=== PATIENT | female | born 1970 | race African-American/Black ===

== ENCOUNTER 2023-04-26 08:30 | Inpatient (IN) | payer BC, OTHER ==
[~2023-04-26] VITALS: Ht 157.5 cm; Wt 151.6 kg
[2023-04-26] MEDS ORDERED: IPRATROPIUM BROMIDE (0.02%) 0.5MG/2.5ML NEB HHN STA (08:58)
[2023-04-26] MEDS ORDERED: METHYLPREDNISOLONE SOD SUCC 125MG/2ML (ACT-O-VIAL) IV STA (08:58)
[2023-04-26] MEDS ORDERED: FUROSEMIDE 40MG/4ML VIAL IV ONE (09:00)
[2023-04-26 09:26] LABS: BG CARBOXYHEMOGLOBIN 0.9 % (0.5-1.5); BG DEOXYHEMOGLOBIN 8.4 % (0.0-5.0); BG HCO3 ACT 42.6 mmol/L (22.0-26.0); BG METHEMOGLOBIN 0.3 % (0.0-1.5); BG OXYGEN SATURATION 91.5 % (92.0-98.5); BG OXYHEMOGLOBIN 90.4 % (94.0-97.0); BG PCO2 77.4 mmHg (35.0-45.0); BG PH 7.359 (7.350-7.450); BG PO2 62.8 mmHg (75.0-100.0); BG SAMPLE SITE RIGHT BRACHIAL; BG TOTAL HEMOGLOBIN 12.1 g/dL (12.0-18.0); BG VENT MODE NASAL CANNULA
[2023-04-26 09:28] VITALS: PULSE 78; RESP 20; O2SAT 100
[2023-04-26] MEDS: ALBUTEROL (0.083%) 2.5MG/3ML NEB HHN SCH ×3 (09:28→10:30)
[2023-04-26 09:36] LABS: BASOPHILS % 1.3 % (0.0-2.0); DIFFERENTIAL COMMENT 0; HEMATOCRIT. 36.2 % (36.0-48.0); HEMOGLOBIN. 10.8 g/dL (12.0-16.0); LYMPHOCYTES % 29.7 % (20.0-50.0); MEAN CORPUSCULAR HEMOGLOBIN 23.4 pg (28.0-32.0); MEAN CORPUSCULAR VOLUME 78.1 fL (81.0-99.0); MEAN PLATELET VOLUME 8.9 fl (7.4-10.4); MONOCYTES % 4.1 % (2.0-8.0); NEUTROPHILS % 63.9 % (40.0-76.0); PLATELET 189 x1000/uL (130-400); RED BLOOD CELL COUNT 4.63 mill/uL (4.2-5.4); RED CELL DISTRIBUTION WIDTH 16.4 % (11.6-14.6); WHITE BLOOD COUNT 9.2 x1000/uL (4.5-11.0)
[2023-04-26 09:54] LABS: ALANINE AMINOTRANSFERASE 8 IU/L (10-49); ALBUMIN 3.9 g/dL (3.2-4.8); ASPARTATE AMINOTRANSFERASE 14 IU/L (<34); BILIRUBIN TOTAL 0.4 mg/dL (0.1-1.0); CALCIUM 9.1 mg/dL (8.7-10.4); CHLORIDE 98 mEq/L (98-107); CREATININE 0.7 mg/dL (0.6-1.0); GLUCOSE 119 mg/dL (70-105); POTASSIUM 3.5 mEq/L (3.5-5.1); PROTEIN TOTAL 7.6 g/dL (6.0-8.3); SODIUM 139 mEq/L (136-145); UREA NITROGEN BLOOD 9 mg/dL (9-23)
[2023-04-26 10:09] VITALS: PULSE 88; RESP 20; O2SAT 100
[2023-04-26 10:30] VITALS: PULSE 72; RESP 18; O2SAT 98
[2023-04-26 11:09] LABS: CARBON DIOXIDE > 40 mEq/L (21-32); TROPONIN I HIGH SENSITIVITY 63 ng/L (3.0-34)
[2023-04-26 11:32] VITALS: RESP 25
[2023-04-26 11:58] LABS: TROPONIN I HIGH SENSITIVITY 68 ng/L (3.0-34)
[2023-04-26] MEDS ORDERED: CLONIDINE 0.1MG TABLET PO PRN (16:15)
[2023-04-26] MEDS ORDERED: LEVOFLOXACIN 500MG PREMIX 100 ML IV SCH (16:15)
[2023-04-26] MEDS: FUROSEMIDE 40MG/4ML VIAL IVP SCH (16:53)
[2023-04-26] MEDS: ENOXAPARIN 40MG/0.4ML SYR SUBCUT SCH (21:18)
[2023-04-27] VITALS (13 sets, daily range): BP systolic 107–144; BP diastolic 58–103; PULSE 69–96; RESP 15–28; TEMP 97.5–98.5; O2SAT 96
[2023-04-27 05:13] LABS: CREATINE KINASE MB FRACTION 1.2 ng/mL (0.5-3.6)
[2023-04-27] MEDS: FUROSEMIDE 40MG/4ML VIAL IVP SCH (09:47)
[2023-04-27] MEDS: ENOXAPARIN 40MG/0.4ML SYR SUBCUT SCH ×2 (09:48→20:06)
[2023-04-27] MEDS: ACETAMINOPHEN 325MG TABLET PO PRN ×2 (09:50→19:39)
[2023-04-27] MEDS ORDERED: IPRATROPIUM BROMIDE (0.02%) 0.5MG/2.5ML NEB HHN SCH (14:45)
[2023-04-27] MEDS: PANTOPRAZOLE 40MG DR TABLET PO SCH (16:46)
[2023-04-27] MEDS: METHYLPREDNISOLONE SOD SUCC 40MG/ML (ACT-O-VIAL) IV SCH ×2 (16:46→22:26)
[2023-04-27] MEDS: LEVOFLOXACIN 500MG PREMIX 100 ML IV SCH (16:47)
[2023-04-27 20:15] LABS: *AMPHETAMINES SCREEN URINE NEGATIVE (NEGATIVE); *BARBITURATES SCREEN URINE NEGATIVE (NEGATIVE); *BENZODIAZEPINES SCREEN URINE NEGATIVE (NEGATIVE); *COCAINE SCREEN URINE NEGATIVE (NEGATIVE); CANNABINOID URINE SCREEN PRESUMPTIVE POSITIVE (NEGATIVE); ECSTASY MDMA SCREEN URINE NEGATIVE (NEGATIVE); METHADONE URINE SCREEN Neg (NEGATIVE); OPIATES URINE SCREEN NEGATIVE (NEGATIVE); PHENCYCLIDINE URINE SCREEN NEGATIVE (NEGATIVE)
[2023-04-27] MEDS: IPRATROPIUM/ALBUTEROL 0.5-3(2.5)MG/3ML NEB HHN SCH (20:21)
[2023-04-28] VITALS (16 sets, daily range): BP systolic 111–143; BP diastolic 59–93; PULSE 65–98; RESP 16–25; TEMP 97–97.7; O2SAT 95–99
[2023-04-28] MEDS: IPRATROPIUM/ALBUTEROL 0.5-3(2.5)MG/3ML NEB HHN SCH ×4 (01:47→20:26)
[2023-04-28] MEDS: METHYLPREDNISOLONE SOD SUCC 40MG/ML (ACT-O-VIAL) IV SCH ×3 (06:45→22:14)
[2023-04-28] MEDS: FUROSEMIDE 40MG/4ML VIAL IVP SCH (08:11)
[2023-04-28] MEDS: ENOXAPARIN 40MG/0.4ML SYR SUBCUT SCH ×2 (08:11→21:18)
[2023-04-28] MEDS: PANTOPRAZOLE 40MG DR TABLET PO SCH (08:11)
[2023-04-28 08:27] LABS: HEMATOCRIT. 37.4 % (36.0-48.0); HEMOGLOBIN. 11.6 g/dL (12.0-16.0); MEAN CORPUSCULAR HEMOGLOBIN 23.7 pg (28.0-32.0); MEAN CORPUSCULAR HGB CONC 30.9 g/dL (31.0-37.0); MEAN CORPUSCULAR VOLUME 76.7 fL (81.0-99.0); MEAN PLATELET VOLUME 9.2 fl (7.4-10.4); PLATELET 271 x1000/uL (130-400); RED BLOOD CELL COUNT 4.88 mill/uL (4.2-5.4); RED CELL DISTRIBUTION WIDTH 16.6 % (11.6-14.6); WHITE BLOOD COUNT 15.9 x1000/uL (4.5-11.0)
[2023-04-28 08:33] LABS: DIFFERENTIAL COMMENT 1
[2023-04-28 09:00] LABS: CALCIUM 9.9 mg/dL (8.7-10.4); CHLORIDE 93 mEq/L (98-107); CREATININE 0.7 mg/dL (0.6-1.0); GLUCOSE 129 mg/dL (70-105); POTASSIUM 4.8 mEq/L (3.5-5.1); SODIUM 137 mEq/L (136-145); UREA NITROGEN BLOOD 11 mg/dL (9-23)
[2023-04-28 11:13] LABS: HEPATITIS B SURFACE ANTIGEN REACTIVE PEND CONFIR (Negative); HEPATITIS C AB NON REACTIVE (Neg) (Negative)
[2023-04-28] MEDS: ACETAMINOPHEN 325MG TABLET PO PRN (13:02)
[2023-04-28 13:32] LABS: CARBON DIOXIDE > 40 mEq/L (21-32)
[2023-04-28] MEDS ORDERED: DEXTROSE 50% WATER 50ML SYRINGE IV PRN (14:45)
[2023-04-28 15:41] LABS: ANISOCYTOSIS 1+; HYPOCHROMASIA 1+; MICROCYTOSIS 1+; PLATELET ESTIMATE NORMAL
[2023-04-28] MEDS: LEVETIRACETAM 500MG PREMIX 100 ML IV SCH ×2 (15:54→23:13)
[2023-04-28 15:57] LABS: CREATINE KINASE MB FRACTION 2.1 ng/mL (0.5-3.6)
[2023-04-28] MEDS: LEVOFLOXACIN 500MG PREMIX 100 ML IV SCH (16:00)
[2023-04-28 16:07] LABS: BG BASE EXCESS 12.4 mmol/L (-2.0-2.0); BG CARBOXYHEMOGLOBIN 0.2 % (0.5-1.5); BG DEOXYHEMOGLOBIN 8.9 % (0.0-5.0); BG FRACTION INSPIRED OXYGEN 32; BG HCO3 ACT 40.4 mmol/L (22.0-26.0); BG METHEMOGLOBIN 0.3 % (0.0-1.5); BG OXYGEN SATURATION 91.1 % (92.0-98.5); BG OXYHEMOGLOBIN 90.6 % (94.0-97.0); BG PCO2 69.5 mmHg (35.0-45.0); BG PH 7.382 (7.350-7.450); BG SAMPLE SITE RIGHT RADIAL; BG TOTAL HEMOGLOBIN 12.7 g/dL (12.0-18.0); BG VENT MODE NASAL CANNULA
[2023-04-28] MEDS: BLOOD SUGAR DIAGNOSTIC STRIP TEST SCH ×2 (17:30→21:17)
[2023-04-28] MEDS: INSULIN LISPRO 100 UNITS/ML SUBCUT SCH ×2 (18:00→21:18)
[2023-04-28] MEDS ORDERED: CARV12.545 PO (19:34)
[2023-04-28] MEDS ORDERED: LOSA25TA26 PO (19:34)
[2023-04-28] MEDS ORDERED: TIOT4MIS5 IH (19:43)
[2023-04-28] MEDS ORDERED: ASPI-1497 PO (19:43)
[2023-04-28] MEDS ORDERED: BUME2TAB7 MT (19:43)
[2023-04-28] MEDS ORDERED: TOPUD PO (19:43)
[2023-04-28] MEDS ORDERED: ATOR-2 PO (19:43)
[2023-04-28] MEDS ORDERED: ISOS30TA12 PO (19:43)
[2023-04-28] MEDS ORDERED: PANT40TA51 PO (19:43)
[2023-04-29] VITALS (16 sets, daily range): BP systolic 124–139; BP diastolic 55–85; PULSE 65–108; RESP 16–25; TEMP 97.7–98.4; O2SAT 94–96
[2023-04-29] MEDS: IPRATROPIUM/ALBUTEROL 0.5-3(2.5)MG/3ML NEB HHN SCH ×4 (01:09→21:03)
[2023-04-29 05:18] LABS: HEMATOCRIT. 37.5 % (36.0-48.0); HEMOGLOBIN. 11.5 g/dL (12.0-16.0); MEAN CORPUSCULAR HEMOGLOBIN 23.6 pg (28.0-32.0); MEAN CORPUSCULAR HGB CONC 30.8 g/dL (31.0-37.0); MEAN CORPUSCULAR VOLUME 76.7 fL (81.0-99.0); MEAN PLATELET VOLUME 8.8 fl (7.4-10.4); PLATELET 283 x1000/uL (130-400); RED BLOOD CELL COUNT 4.89 mill/uL (4.2-5.4); RED CELL DISTRIBUTION WIDTH 16.6 % (11.6-14.6); WHITE BLOOD COUNT 18.3 x1000/uL (4.5-11.0)
[2023-04-29 05:32] LABS: CALCIUM 9.9 mg/dL (8.7-10.4); CHLORIDE 92 mEq/L (98-107); CREATININE 0.7 mg/dL (0.6-1.0); GLUCOSE 143 mg/dL (70-105); POTASSIUM 4.8 mEq/L (3.5-5.1); SODIUM 137 mEq/L (136-145); UREA NITROGEN BLOOD 16 mg/dL (9-23)
[2023-04-29 05:59] LABS: CARBON DIOXIDE > 40 mEq/L (21-32)
[2023-04-29] MEDS: METHYLPREDNISOLONE SOD SUCC 40MG/ML (ACT-O-VIAL) IV SCH ×3 (06:21→22:00)
[2023-04-29 06:49] LABS: DIFFERENTIAL COMMENT 1
[2023-04-29] MEDS: BLOOD SUGAR DIAGNOSTIC STRIP TEST SCH ×4 (07:30→21:20)
[2023-04-29] MEDS: INSULIN LISPRO 100 UNITS/ML SUBCUT SCH ×4 (08:00→21:20)
[2023-04-29] MEDS: ENOXAPARIN 40MG/0.4ML SYR SUBCUT SCH ×2 (08:47→21:19)
[2023-04-29] MEDS: PANTOPRAZOLE 40MG DR TABLET PO SCH (08:47)
[2023-04-29] MEDS: FUROSEMIDE 40MG/4ML VIAL IVP SCH (08:47)
[2023-04-29] MEDS: LEVETIRACETAM 500MG PREMIX 100 ML IV SCH (08:48)
[2023-04-29] MEDS ORDERED: LACTULOSE 20G/30ML UDC PO NR (11:09)
[2023-04-29] MEDS: ACETAMINOPHEN 325MG TABLET PO PRN ×2 (12:44→22:14)
[2023-04-29] MEDS: LEVOFLOXACIN 500MG PREMIX 100 ML IV SCH (15:52)
[2023-04-29 18:10] LABS: ANISOCYTOSIS 1+; PLATELET ESTIMATE NORMAL
[2023-04-29 18:11] LABS: HYPOCHROMASIA 1+; MICROCYTOSIS 1+
[2023-04-29] MEDS ORDERED: NA PHOS,M-B/NA PHOS,DI-BA ENEMA 118ML PR PRN (19:15)
[2023-04-29] MEDS ORDERED: BISACODYL 5MG TABLET PO PRN (19:15)
[2023-04-29] MEDS: LEVETIRACETAM 500MG TABLET PO SCH (21:19)
[2023-04-30] VITALS (17 sets, daily range): BP systolic 101–146; BP diastolic 54–93; PULSE 66–132; RESP 15–30; TEMP 97.4–98.4; O2SAT 96–99
[2023-04-30] MEDS: IPRATROPIUM/ALBUTEROL 0.5-3(2.5)MG/3ML NEB HHN SCH ×4 (02:45→20:29)
[2023-04-30] MEDS: METHYLPREDNISOLONE SOD SUCC 40MG/ML (ACT-O-VIAL) IV SCH ×3 (05:58→16:39)
[2023-04-30] MEDS: INSULIN LISPRO 100 UNITS/ML SUBCUT SCH ×4 (08:00→21:33)
[2023-04-30 08:08] LABS: HBSAG SCREEN Negative (Negative)
[2023-04-30] MEDS: FAMOTIDINE 20MG TABLET PO SCH ×2 (08:16→21:29)
[2023-04-30] MEDS: FUROSEMIDE 40MG/4ML VIAL IVP SCH (08:16)
[2023-04-30] MEDS: ENOXAPARIN 40MG/0.4ML SYR SUBCUT SCH ×2 (08:16→21:29)
[2023-04-30] MEDS: ACETAMINOPHEN 325MG TABLET PO PRN (08:16)
[2023-04-30] MEDS: LEVETIRACETAM 500MG TABLET PO SCH ×2 (08:16→21:30)
[2023-04-30] MEDS: BLOOD SUGAR DIAGNOSTIC STRIP TEST SCH ×4 (08:17→21:00)
[2023-04-30 11:57] LABS: HEMATOCRIT. 40.2 % (36.0-48.0); MEAN CORPUSCULAR HGB CONC 29.8 g/dL (31.0-37.0); MEAN CORPUSCULAR VOLUME 77.1 fL (81.0-99.0); MEAN PLATELET VOLUME 9.1 fl (7.4-10.4); PLATELET 308 x1000/uL (130-400); RED BLOOD CELL COUNT 5.21 mill/uL (4.2-5.4); RED CELL DISTRIBUTION WIDTH 16.4 % (11.6-14.6); WHITE BLOOD COUNT 16.5 x1000/uL (4.5-11.0)
[2023-04-30] MEDS: LACTULOSE 20G/30ML UDC PO PRN (11:58)
[2023-04-30 12:13] LABS: DIFFERENTIAL COMMENT 1
[2023-04-30 12:14] LABS: ALANINE AMINOTRANSFERASE 8 IU/L (10-49); ALBUMIN 4.2 g/dL (3.2-4.8); ASPARTATE AMINOTRANSFERASE 10 IU/L (<34); BILIRUBIN TOTAL 0.3 mg/dL (0.1-1.0); CALCIUM 9.5 mg/dL (8.7-10.4); CHLORIDE 91 mEq/L (98-107); CREATININE 0.8 mg/dL (0.6-1.0); GLUCOSE 216 mg/dL (70-105); POTASSIUM 4.3 mEq/L (3.5-5.1); SODIUM 136 mEq/L (136-145); UREA NITROGEN BLOOD 18 mg/dL (9-23)
[2023-04-30 12:43] LABS: CARBON DIOXIDE > 40 mEq/L (21-32)
[2023-04-30] MEDS: LORAZEPAM 4MG/ML VIAL IV PRN ×2 (13:34→22:10)
[2023-04-30] MEDS: LEVOFLOXACIN 500MG PREMIX 100 ML IV SCH (16:42)
[2023-04-30 18:35] LABS: HYPOCHROMASIA 1+; MICROCYTOSIS 1+; PLATELET ESTIMATE NORMAL
[2023-04-30 18:52] LABS: *AMPHETAMINES SCREEN URINE NEGATIVE (NEGATIVE); *BARBITURATES SCREEN URINE NEGATIVE (NEGATIVE); *BENZODIAZEPINES SCREEN URINE NEGATIVE (NEGATIVE); *COCAINE SCREEN URINE NEGATIVE (NEGATIVE); CANNABINOID URINE SCREEN PRESUMPTIVE POSITIVE (NEGATIVE); ECSTASY MDMA SCREEN URINE NEGATIVE (NEGATIVE); METHADONE URINE SCREEN Neg (NEGATIVE); OPIATES URINE SCREEN NEGATIVE (NEGATIVE); PHENCYCLIDINE URINE SCREEN NEGATIVE (NEGATIVE)
[2023-05-01] VITALS (65 sets, daily range): BP systolic 91–157; BP diastolic 54–122; PULSE 66–151; RESP 13–25; TEMP 96–100.5; O2SAT 97
[2023-05-01] MEDS: LORAZEPAM 4MG/ML VIAL IV PRN (04:22)
[2023-05-01] MEDS: ONDANSETRON HCL 4MG/2ML INJ IV PRN (04:22)
[2023-05-01] MEDS: BLOOD SUGAR DIAGNOSTIC STRIP TEST SCH ×4 (07:30→21:59)
[2023-05-01] MEDS: INSULIN LISPRO 100 UNITS/ML SUBCUT SCH ×4 (08:00→21:00)
[2023-05-01 08:04] LABS: BG BASE EXCESS 17.1 mmol/L (-2.0-2.0); BG CARBOXYHEMOGLOBIN 0.5 % (0.5-1.5); BG DEOXYHEMOGLOBIN 1.1 % (0.0-5.0); BG FRACTION INSPIRED OXYGEN 100; BG HCO3 ACT 46.9 mmol/L (22.0-26.0); BG METHEMOGLOBIN 0.4 % (0.0-1.5); BG OXYGEN SATURATION 98.9 % (92.0-98.5); BG PCO2 87.8 mmHg (35.0-45.0); BG PH 7.346 (7.350-7.450); BG PO2 140.1 mmHg (75.0-100.0); BG SAMPLE SITE RIGHT RADIAL; BG TOTAL HEMOGLOBIN 12.7 g/dL (12.0-18.0); BG VENT MODE VENT - AC
[2023-05-01] MEDS: METHYLPREDNISOLONE SOD SUCC 40MG/ML (ACT-O-VIAL) IV SCH ×2 (08:22→18:45)
[2023-05-01] MEDS: FUROSEMIDE 40MG/4ML VIAL IVP SCH (08:22)
[2023-05-01] MEDS: FAMOTIDINE 20MG TABLET PO SCH ×2 (08:22→21:09)
[2023-05-01] MEDS: ENOXAPARIN 40MG/0.4ML SYR SUBCUT SCH ×2 (08:22→21:09)
[2023-05-01] MEDS: PROPOFOL 10MG/ML 100ML 100 ML IV PRN ×6 (08:23→22:35)
[2023-05-01] MEDS: LEVETIRACETAM 500MG TABLET PO SCH ×2 (08:23→21:10)
[2023-05-01] MEDS: IPRATROPIUM/ALBUTEROL 0.5-3(2.5)MG/3ML NEB HHN SCH ×3 (08:55→20:44)
[2023-05-01] MEDS ORDERED: LIDOCAINE HCL 1% 10 MG/ML 10ML VIAL ONE (10:33)
[2023-05-01 11:03] LABS: BG BASE EXCESS 16.7 mmol/L (-2.0-2.0); BG CARBOXYHEMOGLOBIN 0.4 % (0.5-1.5); BG DEOXYHEMOGLOBIN 9.7 % (0.0-5.0); BG FRACTION INSPIRED OXYGEN 100; BG HCO3 ACT 44.9 mmol/L (22.0-26.0); BG METHEMOGLOBIN 0.5 % (0.0-1.5); BG OXYGEN SATURATION 90.2 % (92.0-98.5); BG OXYHEMOGLOBIN 89.4 % (94.0-97.0); BG PCO2 71.1 mmHg (35.0-45.0); BG PH 7.418 (7.350-7.450); BG PO2 56.1 mmHg (75.0-100.0); BG SAMPLE SITE RIGHT RADIAL; BG TOTAL HEMOGLOBIN 13.3 g/dL (12.0-18.0); BG VENT MODE VENT - AC
[2023-05-01] MEDS: LEVOFLOXACIN 750MG PREMIX 150 ML IV SCH (11:13)
[2023-05-01] MEDS: ACETYLCYSTEINE 200MG/ML 20% VIAL 4ML INH SCH (15:00)
[2023-05-01 17:49] LABS: BG BASE EXCESS 19.6 mmol/L (-2.0-2.0); BG CARBOXYHEMOGLOBIN 0.1 % (0.5-1.5); BG DEOXYHEMOGLOBIN 1.8 % (0.0-5.0); BG FRACTION INSPIRED OXYGEN 100; BG HCO3 ACT 45.6 mmol/L (22.0-26.0); BG METHEMOGLOBIN 0.3 % (0.0-1.5); BG OXYGEN SATURATION 98.2 % (92.0-98.5); BG OXYHEMOGLOBIN 97.8 % (94.0-97.0); BG PCO2 57.4 mmHg (35.0-45.0); BG PH 7.518 (7.350-7.450); BG PO2 108.8 mmHg (75.0-100.0); BG SAMPLE SITE LEFT RADIAL; BG TOTAL HEMOGLOBIN 12.8 g/dL (12.0-18.0); BG VENT MODE VENT - AC
[2023-05-02] VITALS (104 sets, daily range): BP systolic 94–139; BP diastolic 57–87; PULSE 58–104; RESP 15–22; TEMP 98–100.5
[2023-05-02] MEDS: ACETYLCYSTEINE 200MG/ML 20% VIAL 4ML INH SCH ×4 (00:32→14:08)
[2023-05-02] MEDS: IPRATROPIUM/ALBUTEROL 0.5-3(2.5)MG/3ML NEB HHN SCH ×3 (00:32→14:08)
[2023-05-02] MEDS: PROPOFOL 10MG/ML 100ML 100 ML IV PRN ×4 (01:16→08:50)
[2023-05-02] MEDS: BLOOD SUGAR DIAGNOSTIC STRIP TEST SCH ×4 (05:30→21:00)
[2023-05-02 05:38] LABS: BASOPHILS % 0.1 % (0.0-2.0); DIFFERENTIAL COMMENT 0; HEMOGLOBIN. 11.5 g/dL (12.0-16.0); LYMPHOCYTES % 8.9 % (20.0-50.0); MEAN CORPUSCULAR HEMOGLOBIN 22.9 pg (28.0-32.0); MEAN CORPUSCULAR HGB CONC 30.1 g/dL (31.0-37.0); MEAN CORPUSCULAR VOLUME 76.1 fL (81.0-99.0); MEAN PLATELET VOLUME 9.1 fl (7.4-10.4); MONOCYTES % 6.6 % (2.0-8.0); NEUTROPHILS % 84.4 % (40.0-76.0); PLATELET 278 x1000/uL (130-400); RED CELL DISTRIBUTION WIDTH 15.8 % (11.6-14.6); WHITE BLOOD COUNT 16.2 x1000/uL (4.5-11.0)
[2023-05-02 05:56] LABS: CALCIUM 9.2 mg/dL (8.7-10.4); CHLORIDE 88 mEq/L (98-107); CREATININE 0.9 mg/dL (0.6-1.0); GLUCOSE 116 mg/dL (70-105); POTASSIUM 3.8 mEq/L (3.5-5.1); SODIUM 134 mEq/L (136-145); TRIGLYCERIDE 243 mg/dL (0-150); UREA NITROGEN BLOOD 20 mg/dL (9-23)
[2023-05-02 06:14] LABS: CARBON DIOXIDE > 40 mEq/L (21-32)
[2023-05-02] MEDS: INSULIN LISPRO 100 UNITS/ML SUBCUT SCH ×4 (07:00→21:00)
[2023-05-02 08:22] LABS: BG PCO2 54.9 mmHg (35.0-45.0); BG PH 7.546 (7.350-7.450); BG SAMPLE SITE RIGHT RADIAL; BG VENT MODE VENT - AC
[2023-05-02 08:23] LABS: BG CARBOXYHEMOGLOBIN 0.4 % (0.5-1.5); BG HCO3 ACT 46.5 mmol/L (22.0-26.0); BG METHEMOGLOBIN 0.3 % (0.0-1.5); BG OXYHEMOGLOBIN 96.3 % (94.0-97.0); BG PO2 89.5 mmHg (75.0-100.0); BG TOTAL HEMOGLOBIN 12.6 g/dL (12.0-18.0)
[2023-05-02] MEDS ORDERED: PROPOFOL 10MG/ML 100ML 100 ML IV PRN (08:45)
[2023-05-02] MEDS: LEVETIRACETAM 500MG TABLET PO SCH ×2 (08:50→22:11)
[2023-05-02] MEDS: FAMOTIDINE 20MG TABLET PO SCH ×2 (08:50→22:11)
[2023-05-02] MEDS: ENOXAPARIN 40MG/0.4ML SYR SUBCUT SCH ×2 (08:50→22:10)
[2023-05-02] MEDS: METHYLPREDNISOLONE SOD SUCC 40MG/ML (ACT-O-VIAL) IV SCH ×2 (08:50→16:36)
[2023-05-02] MEDS: FUROSEMIDE 40MG/4ML VIAL IVP SCH (08:50)
[2023-05-02] MEDS ORDERED: PANTOPRAZOLE SODIUM 40 MG/VIAL IV SCH (09:00)
[2023-05-02] MEDS: LEVOFLOXACIN 750MG PREMIX 150 ML IV SCH (10:16)
[2023-05-02] MEDS ORDERED: MIDAZOLAM 100MG/100ML PMX 100 ML IV PRN (12:00)
[2023-05-02] MEDS ORDERED: FENTANYL 2500MCG/250ML PMX 250 ML IV ONE (12:00)
[2023-05-02] MEDS: MIDAZOLAM HCL 100 MG in SODIUM CHLORIDE 0.9% 100 ML IV PRN (12:49)
[2023-05-02] MEDS: FENTANYL CITRATE 2,500 MCG in SODIUM CHLORIDE 0.9% 200 ML IV PRN (12:49)
[2023-05-03] VITALS (104 sets, daily range): BP systolic 102–125; BP diastolic 60–86; PULSE 54–125; RESP 13–25; TEMP 97.8–99
[2023-05-03] MEDS: MIDAZOLAM HCL 100 MG in SODIUM CHLORIDE 0.9% 100 ML IV PRN ×2 (00:56→16:19)
[2023-05-03] MEDS: BLOOD SUGAR DIAGNOSTIC STRIP TEST SCH ×4 (06:30→21:42)
[2023-05-03] MEDS: FUROSEMIDE 40MG/4ML VIAL IVP SCH (09:00)
[2023-05-03] MEDS: ENOXAPARIN 40MG/0.4ML SYR SUBCUT SCH ×2 (09:01→21:50)
[2023-05-03] MEDS: FAMOTIDINE 20MG TABLET PO SCH ×2 (09:01→21:49)
[2023-05-03] MEDS: METHYLPREDNISOLONE SOD SUCC 40MG/ML (ACT-O-VIAL) IV SCH ×2 (09:01→16:18)
[2023-05-03] MEDS: LEVOFLOXACIN 750MG PREMIX 150 ML IV SCH (09:02)
[2023-05-03] MEDS: LEVETIRACETAM 500MG TABLET PO SCH ×2 (09:02→21:49)
[2023-05-03 09:25] LABS: BASOPHILS % 0.2 % (0.0-2.0); DIFFERENTIAL COMMENT 0; HEMATOCRIT. 38.4 % (36.0-48.0); HEMOGLOBIN. 11.8 g/dL (12.0-16.0); LYMPHOCYTES % 9.3 % (20.0-50.0); MEAN CORPUSCULAR HEMOGLOBIN 22.9 pg (28.0-32.0); MEAN CORPUSCULAR HGB CONC 30.8 g/dL (31.0-37.0); MEAN CORPUSCULAR VOLUME 74.2 fL (81.0-99.0); MEAN PLATELET VOLUME 8.6 fl (7.4-10.4); MONOCYTES % 7.4 % (2.0-8.0); NEUTROPHILS % 83.1 % (40.0-76.0); PLATELET 252 x1000/uL (130-400); RED BLOOD CELL COUNT 5.18 mill/uL (4.2-5.4); RED CELL DISTRIBUTION WIDTH 16.3 % (11.6-14.6); WHITE BLOOD COUNT 21.8 x1000/uL (4.5-11.0)
[2023-05-03 09:40] LABS: CALCIUM 9.2 mg/dL (8.7-10.4); CARBON DIOXIDE 40 mEq/L (21-32); CHLORIDE 90 mEq/L (98-107); CREATININE 0.8 mg/dL (0.6-1.0); GLUCOSE 107 mg/dL (70-105); POTASSIUM 3.7 mEq/L (3.5-5.1); SODIUM 135 mEq/L (136-145); UREA NITROGEN BLOOD 29 mg/dL (9-23)
[2023-05-03] MEDS: INSULIN LISPRO 100 UNITS/ML SUBCUT SCH ×3 (12:00→21:50)
[2023-05-03 12:18] LABS: BG BASE EXCESS 16.4 mmol/L (-2.0-2.0); BG CARBOXYHEMOGLOBIN 0.5 % (0.5-1.5); BG DEOXYHEMOGLOBIN 5.8 % (0.0-5.0); BG FRACTION INSPIRED OXYGEN 40; BG HCO3 ACT 41.2 mmol/L (22.0-26.0); BG METHEMOGLOBIN 0.2 % (0.0-1.5); BG OXYGEN SATURATION 94.2 % (92.0-98.5); BG OXYHEMOGLOBIN 93.5 % (94.0-97.0); BG PCO2 49.2 mmHg (35.0-45.0); BG PH 7.541 (7.350-7.450); BG PO2 69.9 mmHg (75.0-100.0); BG SAMPLE SITE RIGHT RADIAL; BG TOTAL HEMOGLOBIN 13.5 g/dL (12.0-18.0); BG VENT MODE VENT - AC/VC
[2023-05-03] MEDS: ACETYLCYSTEINE 200MG/ML 20% VIAL 4ML INH SCH (14:22)
[2023-05-03] MEDS: LACTULOSE 20G/30ML UDC PO PRN (23:27)
[2023-05-04] VITALS (77 sets, daily range): BP systolic 93–142; BP diastolic 59–107; PULSE 61–115; RESP 12–30; TEMP 98–99.2
[2023-05-04] MEDS: FENTANYL CITRATE 2,500 MCG in SODIUM CHLORIDE 0.9% 200 ML IV PRN (01:04)
[2023-05-04] MEDS: BLOOD SUGAR DIAGNOSTIC STRIP TEST SCH ×4 (05:39→21:56)
[2023-05-04] MEDS: INSULIN LISPRO 100 UNITS/ML SUBCUT SCH ×4 (06:01→21:00)
[2023-05-04 08:30] LABS: BG BASE EXCESS 16.2 mmol/L (-2.0-2.0); BG DEOXYHEMOGLOBIN 6.2 % (0.0-5.0); BG HCO3 ACT 44.3 mmol/L (22.0-26.0); BG METHEMOGLOBIN 0.3 % (0.0-1.5); BG OXYGEN SATURATION 93.7 % (92.0-98.5); BG OXYHEMOGLOBIN 92.5 % (94.0-97.0); BG PCO2 69.8 mmHg (35.0-45.0); BG SAMPLE SITE RIGHT RADIAL; BG TOTAL HEMOGLOBIN 13.6 g/dL (12.0-18.0); BG VENT MODE VENT - CPAP
[2023-05-04] MEDS: FUROSEMIDE 40MG/4ML VIAL IVP SCH (09:00)
[2023-05-04] MEDS: IPRATROPIUM/ALBUTEROL 0.5-3(2.5)MG/3ML NEB HHN SCH (09:01)
[2023-05-04] MEDS: ACETYLCYSTEINE 200MG/ML 20% VIAL 4ML INH SCH (09:01)
[2023-05-04] MEDS: ENOXAPARIN 40MG/0.4ML SYR SUBCUT SCH ×2 (09:51→21:56)
[2023-05-04] MEDS: FAMOTIDINE 20MG TABLET PO SCH ×2 (09:51→21:56)
[2023-05-04] MEDS: LEVOFLOXACIN 750MG PREMIX 150 ML IV SCH (09:51)
[2023-05-04] MEDS: METHYLPREDNISOLONE SOD SUCC 40MG/ML (ACT-O-VIAL) IV SCH ×2 (09:51→17:16)
[2023-05-04] MEDS: LEVETIRACETAM 500MG TABLET PO SCH ×2 (09:52→21:56)
[2023-05-04] MEDS ORDERED: PROPOFOL 10MG/ML 100ML 100 ML IV PRN (12:45)
[2023-05-04] MEDS ORDERED: VANCOMYCIN 2,000 MG in DEXT 5% WATER 500 ML IV NR (16:00)
[2023-05-04] MEDS: ONDANSETRON HCL 4MG/2ML INJ IV PRN (20:01)
[2023-05-04] MEDS: ACETAMINOPHEN 325MG TABLET PO PRN (23:13)
[2023-05-05] VITALS (12 sets, daily range): BP systolic 117–139; BP diastolic 65–102; PULSE 61–81; RESP 13–23; TEMP 96.9–98.2; O2SAT 98
[2023-05-05] MEDS: BLOOD SUGAR DIAGNOSTIC STRIP TEST SCH ×4 (06:41→21:00)
[2023-05-05] MEDS: INSULIN LISPRO 100 UNITS/ML SUBCUT SCH ×4 (06:42→21:25)
[2023-05-05] MEDS: VANCOMYCIN 1G PREMIX 200 ML IV SCH ×2 (06:43→18:18)
[2023-05-05] MEDS: METHYLPREDNISOLONE SOD SUCC 40MG/ML (ACT-O-VIAL) IV SCH ×2 (11:11→18:18)
[2023-05-05] MEDS: FUROSEMIDE 40MG/4ML VIAL IVP SCH (11:11)
[2023-05-05] MEDS: LEVETIRACETAM 500MG TABLET PO SCH ×2 (11:12→21:24)
[2023-05-05] MEDS: FAMOTIDINE 20MG TABLET PO SCH ×2 (11:12→21:24)
[2023-05-05] MEDS: ENOXAPARIN 40MG/0.4ML SYR SUBCUT SCH ×2 (11:14→21:24)
[2023-05-05] MEDS: LEVOFLOXACIN 750MG PREMIX 150 ML IV SCH (11:14)
[2023-05-05] MEDS: IPRATROPIUM/ALBUTEROL 0.5-3(2.5)MG/3ML NEB HHN SCH (21:29)
[2023-05-06] VITALS (10 sets, daily range): BP systolic 117–132; BP diastolic 71–81; PULSE 64–75; RESP 16–24; TEMP 97.8–99; O2SAT 94–98
[2023-05-06] MEDS: IPRATROPIUM/ALBUTEROL 0.5-3(2.5)MG/3ML NEB HHN SCH ×3 (00:50→14:17)
[2023-05-06] MEDS: ACETYLCYSTEINE 200MG/ML 20% VIAL 4ML INH SCH ×2 (00:50→08:41)
[2023-05-06] MEDS: BLOOD SUGAR DIAGNOSTIC STRIP TEST SCH ×4 (06:50→20:44)
[2023-05-06 07:03] LABS: BASOPHILS % 0.2 % (0.0-2.0); DIFFERENTIAL COMMENT 0; HEMATOCRIT. 39.9 % (36.0-48.0); HEMOGLOBIN. 12.4 g/dL (12.0-16.0); MEAN CORPUSCULAR HEMOGLOBIN 23.9 pg (28.0-32.0); MEAN CORPUSCULAR HGB CONC 31.1 g/dL (31.0-37.0); MEAN CORPUSCULAR VOLUME 76.6 fL (81.0-99.0); MEAN PLATELET VOLUME 9.6 fl (7.4-10.4); MONOCYTES % 3.8 % (2.0-8.0); PLATELET 273 x1000/uL (130-400); RED BLOOD CELL COUNT 5.21 mill/uL (4.2-5.4); RED CELL DISTRIBUTION WIDTH 15.9 % (11.6-14.6); WHITE BLOOD COUNT 22.6 x1000/uL (4.5-11.0)
[2023-05-06] MEDS: VANCOMYCIN 1G PREMIX 200 ML IV SCH (07:09)
[2023-05-06 07:20] LABS: CALCIUM 9.2 mg/dL (8.7-10.4); CHLORIDE 90 mEq/L (98-107); CREATININE 0.7 mg/dL (0.6-1.0); GLUCOSE 118 mg/dL (70-105); POTASSIUM 4.5 mEq/L (3.5-5.1); SODIUM 134 mEq/L (136-145); UREA NITROGEN BLOOD 29 mg/dL (9-23); VANCOMYCIN TROUGH 10.7 ug/mL (5.0-10.0)
[2023-05-06] MEDS: INSULIN LISPRO 100 UNITS/ML SUBCUT SCH ×4 (07:20→21:18)
[2023-05-06 10:50] LABS: CARBON DIOXIDE > 40 mEq/L (21-32)
[2023-05-06] MEDS: FUROSEMIDE 40MG/4ML VIAL IVP SCH (11:28)
[2023-05-06] MEDS: FAMOTIDINE 20MG TABLET PO SCH ×2 (11:28→21:03)
[2023-05-06] MEDS: METHYLPREDNISOLONE SOD SUCC 40MG/ML (ACT-O-VIAL) IV SCH ×2 (11:28→18:18)
[2023-05-06] MEDS: LEVETIRACETAM 500MG TABLET PO SCH ×2 (11:29→21:08)
[2023-05-06] MEDS: ENOXAPARIN 40MG/0.4ML SYR SUBCUT SCH ×2 (11:30→21:05)
[2023-05-06 15:49] LABS: BG BASE EXCESS 16.3 mmol/L (-2.0-2.0); BG CARBOXYHEMOGLOBIN 1.1 % (0.5-1.5); BG DEOXYHEMOGLOBIN 3.9 % (0.0-5.0); BG FRACTION INSPIRED OXYGEN 34; BG HCO3 ACT 43.4 mmol/L (22.0-26.0); BG METHEMOGLOBIN 0.3 % (0.0-1.5); BG OXYHEMOGLOBIN 94.7 % (94.0-97.0); BG PCO2 62.6 mmHg (35.0-45.0); BG PH 7.459 (7.350-7.450); BG PO2 82.5 mmHg (75.0-100.0); BG SAMPLE SITE RIGHT RADIAL; BG VENT MODE NASAL CANNULA
[2023-05-06] MEDS ORDERED: VANCOMYCIN 1250MG in DEXTROSE 5% WATER 250ML IV SCH (21:00)
[2023-05-06] MEDS: VANCOMYCIN 1.25GM PMX (XELLIA) 250 ML IV SCH (21:06)
[2023-05-07] VITALS (11 sets, daily range): BP systolic 127–140; BP diastolic 70–87; PULSE 63–76; RESP 14–26; TEMP 98.1–99.3; O2SAT 94–100
[2023-05-07] MEDS: IPRATROPIUM/ALBUTEROL 0.5-3(2.5)MG/3ML NEB HHN SCH ×4 (01:31→20:59)
[2023-05-07] MEDS: BLOOD SUGAR DIAGNOSTIC STRIP TEST SCH ×4 (06:11→21:28)
[2023-05-07] MEDS: INSULIN LISPRO 100 UNITS/ML SUBCUT SCH ×4 (07:20→21:56)
[2023-05-07] MEDS: FUROSEMIDE 40MG/4ML VIAL IVP SCH (08:39)
[2023-05-07] MEDS: FAMOTIDINE 20MG TABLET PO SCH ×2 (08:39→20:56)
[2023-05-07] MEDS: METHYLPREDNISOLONE SOD SUCC 40MG/ML (ACT-O-VIAL) IV SCH ×2 (08:39→17:00)
[2023-05-07] MEDS: LEVETIRACETAM 500MG TABLET PO SCH ×2 (08:39→20:57)
[2023-05-07] MEDS: VANCOMYCIN 1.25GM PMX (XELLIA) 250 ML IV SCH ×2 (08:39→20:56)
[2023-05-07] MEDS: ENOXAPARIN 40MG/0.4ML SYR SUBCUT SCH ×2 (08:39→21:36)
[2023-05-07 13:21] LABS: HEMATOCRIT. 41.5 % (36.0-48.0); HEMOGLOBIN. 12.5 g/dL (12.0-16.0); MEAN CORPUSCULAR HGB CONC 30.1 g/dL (31.0-37.0); MEAN CORPUSCULAR VOLUME 76.6 fL (81.0-99.0); MEAN PLATELET VOLUME 9.4 fl (7.4-10.4); PLATELET 298 x1000/uL (130-400); RED BLOOD CELL COUNT 5.42 mill/uL (4.2-5.4); WHITE BLOOD COUNT 29.3 x1000/uL (4.5-11.0)
[2023-05-07 13:25] LABS: DIFFERENTIAL COMMENT 1
[2023-05-07 14:31] LABS: CALCIUM 9.4 mg/dL (8.7-10.4); CARBON DIOXIDE 40 mEq/L (21-32); CHLORIDE 88 mEq/L (98-107); CREATININE 0.7 mg/dL (0.6-1.0); GLUCOSE 85 mg/dL (70-105); POTASSIUM 4.6 mEq/L (3.5-5.1); SODIUM 132 mEq/L (136-145); UREA NITROGEN BLOOD 26 mg/dL (9-23)
[2023-05-07] MEDS ORDERED: IPRATROPIUM/ALBUTEROL 0.5-3(2.5)MG/3ML NEB HHN PRN (17:15)
[2023-05-07] MEDS: GUAIFENESIN-DM 200MG-20MG/10ML UDC PO PRN (17:44)
[2023-05-07 17:48] LABS: ANISOCYTOSIS 1+; HYPOCHROMASIA 1+; MICROCYTOSIS 1+; PLATELET ESTIMATE NORMAL
[2023-05-08] VITALS (11 sets, daily range): BP systolic 114–144; BP diastolic 68–99; PULSE 62–90; RESP 17–25; TEMP 97.9–99; O2SAT 97–98
[2023-05-08] MEDS: IPRATROPIUM/ALBUTEROL 0.5-3(2.5)MG/3ML NEB HHN SCH ×4 (02:08→20:53)
[2023-05-08] MEDS: BLOOD SUGAR DIAGNOSTIC STRIP TEST SCH ×4 (06:10→20:58)
[2023-05-08 07:15] LABS: HEMOGLOBIN. 11.9 g/dL (12.0-16.0); MEAN CORPUSCULAR HEMOGLOBIN 23.1 pg (28.0-32.0); MEAN CORPUSCULAR HGB CONC 29.7 g/dL (31.0-37.0); MEAN CORPUSCULAR VOLUME 77.7 fL (81.0-99.0); MEAN PLATELET VOLUME 9.5 fl (7.4-10.4); PLATELET 265 x1000/uL (130-400); RED BLOOD CELL COUNT 5.15 mill/uL (4.2-5.4); WHITE BLOOD COUNT 27.9 x1000/uL (4.5-11.0)
[2023-05-08] MEDS: INSULIN LISPRO 100 UNITS/ML SUBCUT SCH ×4 (07:20→20:58)
[2023-05-08 07:25] LABS: DIFFERENTIAL COMMENT 1
[2023-05-08 08:22] LABS: CALCIUM 9.4 mg/dL (8.7-10.4); CARBON DIOXIDE 39 mEq/L (21-32); CHLORIDE 89 mEq/L (98-107); CREATININE 0.5 mg/dL (0.6-1.0); GLUCOSE 123 mg/dL (70-105); POTASSIUM 4.5 mEq/L (3.5-5.1); SODIUM 132 mEq/L (136-145); UREA NITROGEN BLOOD 17 mg/dL (9-23)
[2023-05-08] MEDS: ENOXAPARIN 40MG/0.4ML SYR SUBCUT SCH ×2 (08:35→20:56)
[2023-05-08] MEDS: LEVETIRACETAM 500MG TABLET PO SCH (08:38)
[2023-05-08] MEDS: VANCOMYCIN 1.25GM PMX (XELLIA) 250 ML IV SCH (08:41)
[2023-05-08] MEDS: FUROSEMIDE 40MG/4ML VIAL IVP SCH (08:41)
[2023-05-08] MEDS: METHYLPREDNISOLONE SOD SUCC 40MG/ML (ACT-O-VIAL) IV SCH ×2 (08:41→18:32)
[2023-05-08] MEDS: FAMOTIDINE 20MG TABLET PO SCH ×2 (08:41→20:55)
[2023-05-08] MEDS: GUAIFENESIN-DM 200MG-20MG/10ML UDC PO PRN (09:14)
[2023-05-08 17:11] LABS: HYPOCHROMASIA 1+; MICROCYTOSIS 1+; PLATELET ESTIMATE NORMAL
[2023-05-08] MEDS: ACETYLCYSTEINE 200MG/ML 20% VIAL 4ML PO SCH (20:54)
[2023-05-08] MEDS: LEVETIRACETAM 250MG TABLET PO SCH (20:55)
[2023-05-08] MEDS: GUAIFENESIN 600MG ER TABLET PO SCH (20:55)
[2023-05-08] MEDS ORDERED: ACETYLCYSTEINE 200MG/ML 20% VIAL 4ML PO SCH (21:00)
[2023-05-09] VITALS (10 sets, daily range): BP systolic 114–136; BP diastolic 67–96; PULSE 67–89; RESP 14–20; TEMP 97.9–99; O2SAT 96–99
[2023-05-09] MEDS: IPRATROPIUM/ALBUTEROL 0.5-3(2.5)MG/3ML NEB HHN SCH ×3 (02:54→14:26)
[2023-05-09] MEDS: BLOOD SUGAR DIAGNOSTIC STRIP TEST SCH ×2 (06:50→11:50)
[2023-05-09] MEDS: INSULIN LISPRO 100 UNITS/ML SUBCUT SCH ×2 (07:20→12:20)
[2023-05-09] MEDS: FAMOTIDINE 20MG TABLET PO SCH (08:55)
[2023-05-09] MEDS: GUAIFENESIN 600MG ER TABLET PO SCH (08:56)
[2023-05-09] MEDS: LEVETIRACETAM 250MG TABLET PO SCH (08:56)
[2023-05-09] MEDS: ENOXAPARIN 40MG/0.4ML SYR SUBCUT SCH (09:01)
[2023-05-09] MEDS: FUROSEMIDE 40MG/4ML VIAL IVP SCH (09:23)
[2023-05-09] MEDS: ACETYLCYSTEINE 200MG/ML 20% VIAL 4ML PO SCH (09:24)
[2023-05-09] MEDS: METHYLPREDNISOLONE SOD SUCC 40MG/ML (ACT-O-VIAL) IV SCH (09:24)
[2023-05-09] MEDS: GUAIFENESIN-DM 200MG-20MG/10ML UDC PO PRN ×2 (09:29→17:09)
[2023-05-09 10:05] LABS: BASOPHILS % 0.3 % (0.0-2.0); DIFFERENTIAL COMMENT 0; EOSINOPHILS % 0.1 % (0.0-5.0); HEMATOCRIT. 39.7 % (36.0-48.0); HEMOGLOBIN. 11.9 g/dL (12.0-16.0); LYMPHOCYTES % 9.8 % (20.0-50.0); MEAN CORPUSCULAR HEMOGLOBIN 23.2 pg (28.0-32.0); MEAN CORPUSCULAR HGB CONC 30.1 g/dL (31.0-37.0); MEAN CORPUSCULAR VOLUME 77.1 fL (81.0-99.0); MEAN PLATELET VOLUME 9.3 fl (7.4-10.4); NEUTROPHILS % 84.8 % (40.0-76.0); PLATELET 301 x1000/uL (130-400); RED BLOOD CELL COUNT 5.15 mill/uL (4.2-5.4); WHITE BLOOD COUNT 23.9 x1000/uL (4.5-11.0)
[2023-05-09 10:47] LABS: CALCIUM 9.3 mg/dL (8.7-10.4); CHLORIDE 92 mEq/L (98-107); CREATININE 0.7 mg/dL (0.6-1.0); GLUCOSE 117 mg/dL (70-105); POTASSIUM 3.9 mEq/L (3.5-5.1); SODIUM 136 mEq/L (136-145); UREA NITROGEN BLOOD 19 mg/dL (9-23)
[2023-05-09 11:03] LABS: CARBON DIOXIDE > 40 mEq/L (21-32)
[2023-05-09] MEDS: ACETAMINOPHEN 325MG TABLET PO PRN (11:35)
[2023-05-10] MEDS ORDERED: METHYLPREDNISOLONE SOD SUCC 40MG/ML (ACT-O-VIAL) IV SCH (09:00)
== END 2023-05-09 18:15 | disposition home or self-care (01) | DRG 208 ==
LOC: ER 08:30 → EDBEDREQTM 10:24 → EDBEDREQ 10:24 → EDBEDREQSVC 11:14 → MICUSO 19:40 → 5EST 04-27 08:09 → MICUSO 05-01 08:07 → 3WST 05-05 09:12
PROVIDERS: ADMIT Internal Medicine; ATTEND Internal Medicine
PROC: 4A00X4Z Measurement of Central Nervous Electrical Activity, External Approach (ICD-10-PCS; 2023-04-30)
PROC: 5A1945Z Respiratory Ventilation, 24-96 Consecutive Hours (ICD-10-PCS; principal; 2023-05-01)
PROC: 0BH17EZ Insertion of Endotracheal Airway into Trachea, Via Natural or Artificial Opening (ICD-10-PCS; 2023-05-01)
PROC: 02HV33Z Insertion of Infusion Device into Superior Vena Cava, Percutaneous Approach (ICD-10-PCS; 2023-05-01)
PROC: B548ZZA Ultrasonography of Superior Vena Cava, Guidance (ICD-10-PCS; 2023-05-01)
PROC: 4A00X4Z Measurement of Central Nervous Electrical Activity, External Approach (ICD-10-PCS; 2023-05-06)
DX: J44.1 Chronic obstructive pulmonary disease with (acute) exacerbation (principal); J96.01 Acute respiratory failure with hypoxia; J96.02 Acute respiratory failure with hypercapnia; J18.9 Pneumonia, unspecified organism; E66.2 Morbid (severe) obesity with alveolar hypoventilation; J98.19 Other pulmonary collapse; Z68.43 Body mass index [BMI] 50.0-59.9, adult; I11.0 Hypertensive heart disease with heart failure; E78.00 Pure hypercholesterolemia, unspecified; J44.0 Chronic obstructive pulmonary disease with (acute) lower respiratory infection; I50.9 Heart failure, unspecified; Z88.0 Allergy status to penicillin; Z79.899 Other long term (current) drug therapy; Z99.81 Dependence on supplemental oxygen
CPT/HCPCS: 31500; 36415; 36573; 36600; 71045; 74176; 76604; 76830; 76856; 80048; 80053; 80202; 80305; 82375; 82550; 82553; 82805; 82962; 83605; 83880; 84145; 84478; 84484; 85025; 86705; 87070; 87340; 87804; 93005; 93306; 93970; 94002; 94003; 94640; 94660; 95816; 97162; 97166; 97530; 99291; A6261; C1725; J1650; J1815; J1940; J1953; J1956; J2060; J2250; J2405; J2704; J2920; J2930; J3010; J3370; J3490; J7050; J7060; J7608